=== PATIENT | male | born 1935 | race Caucasian/White ===

== ENCOUNTER 2021-02-07 02:28 | Inpatient (IN) | payer OTHER ==
[2021-02-07 04:41] LABS: BASO % 0.6 % (0-2.0); EOS % 3.3 % (0-4.5); HEMATOCRIT 43.1 % (35.4-49); MCH 31.8 pg (25.7-33.7); MCHC 32.3 g/dl (32.0-35.9); MEAN CELL VOLUME 98.2 fl (80-96); MEAN PLT VOLUME 8.7 fl (7.5-11.1); MONO % 9.2 % (3.8-10.2); NEUT % 79.9 % (42.8-82.8); PLATELET COUNT 210 K/MM3 (134-434); RDW 14.5 % (11.9-15.9); WHITE BLOOD COUNT 7.7 K/mm3 (4.0-10.0)
[2021-02-07 04:49] LABS: INR 1.06 (0.83-1.09); PROTHROMBIN TIME (PATIENT) 12.8 SEC (9.7-13.0)
[2021-02-07 05:03] LABS: CALCIUM 9.1 mg/dL (8.5-10.1)
[2021-02-07 05:04] LABS: ALBUMIN 3.2 g/dl (3.4-5.0); BLOOD UREA NITROGEN 61.2 mg/dL (7-18)
[2021-02-07 05:07] LABS: CREATININE 2.2 mg/dL (0.55-1.3)
[2021-02-07 05:09] LABS: BILIRUBIN,TOTAL 0.8 mg/dL (0.2-1); TOT PROT 6.4 g/dl (6.4-8.2)
[2021-02-07 05:12] LABS: EPI CELLS >36 /uL (0-25.1); HYALINE CASTS 6 /uL (0-3.1); PH,URINE 5.5 (5.0-8.0); URINE APPEARANCE CLOUDY; URINE BACTERIA 144 /uL (0-1359); URINE BILIRUBIN NEGATIVE (NEGATIVE); URINE COLOR YELLOW; URINE GLUCOSE (UA) NEGATIVE (NEGATIVE); URINE KETONE TRACE (NEGATIVE); URINE LEUK ESTERASE TRACE (NEGATIVE); URINE NITRITE NEGATIVE (NEGATIVE); URINE PROTEIN 4+ (NEGATIVE); URINE RBC 11 /uL (0-23.9); URINE WBC 94 /uL (0-25.8)
[2021-02-07 05:36] LABS: N-TERMINAL BNP 73265.7 pg/ml (5-450)
[2021-02-07] MEDS ORDERED: ASPIRIN 81 MG CHEWABLE TABLETS PO ONE (06:46)
[2021-02-07] MEDS ORDERED: ASPIRIN 81 MG CHEWABLE TABLETS ONE (06:55)
[2021-02-07] MEDS ORDERED: FUROSEMIDE 40 MG/4 ML INJECTABLE VIAL IVPUSH ONE (08:45)
[2021-02-07] MEDS ORDERED: DEXTROSE 5%-WATER - 1,000 ML IV SCH (08:45)
[2021-02-07] MEDS ORDERED: FUROSEMIDE 40 MG/4 ML INJECTABLE VIAL ONE (08:51)
[2021-02-07] MEDS: ENOXAPARIN NA (PORCINE) 30 MG/0.3 ML DISP.SYRIN SQ SCH (10:20)
[2021-02-07] MEDS: metoPROLOL SUCCINATE 25 MG TAB.SR.24H (FP) PO SCH (10:20)
[2021-02-07] MEDS: PANTOPRAZOLE SODIUM 40 MG VIAL IVPUSH SCH (10:20)
[2021-02-07] MEDS: ASPIRIN COATED 81 MG TABLET.EC PO SCH (12:00)
[2021-02-07] MEDS: FUROSEMIDE 100 MG/10 ML INJECTABLE VIAL IVPB SCH (12:00)
[2021-02-07 12:51] LABS: LACTIC ACID 2.2 mmol/L (0.4-2.0)
[2021-02-07] MEDS ORDERED: ENOXAPARIN NA (PORCINE) 30 MG/0.3 ML DISP.SYRIN SQ ONE (17:51)
[2021-02-07] MEDS ORDERED: PANTOPRAZOLE SODIUM 40 MG VIAL ONE (17:52)
[2021-02-07] MEDS ORDERED: metoPROLOL SUCCINATE 25 MG TAB.SR.24H (FP) ONE (17:53)
[2021-02-07] MEDS ORDERED: ATORVASTATIN CA 40 MG TABLET (FP) ONE (21:59)
[2021-02-07] MEDS: ATORVASTATIN CA 80 MG TABLET (FP) PO SCH (22:00)
[2021-02-07] MEDS ORDERED: ATORVASTATIN CA 20 MG TABLET (FP) PO SCH (22:00)
[2021-02-08 07:14] LABS: EOS % 8.3 % (0-4.5); HEMATOCRIT 41.2 % (35.4-49); HEMOGLOBIN 13.5 GM/dL (11.7-16.9); LYMPH % 11.2 % (8-40); MCHC 32.8 g/dl (32.0-35.9); MEAN CELL VOLUME 97.6 fl (80-96); MEAN PLT VOLUME 8.4 fl (7.5-11.1); MONO % 13.5 % (3.8-10.2); PLATELET COUNT 196 K/MM3 (134-434); RBC 4.22 M/mm3 (4.00-5.60); RDW 14.6 % (11.9-15.9); WHITE BLOOD COUNT 6.7 K/mm3 (4.0-10.0)
[2021-02-08 07:26] LABS: CALCIUM 8.4 mg/dL (8.5-10.1)
[2021-02-08 07:27] LABS: BLOOD UREA NITROGEN 52.9 mg/dL (7-18)
[2021-02-08 07:30] LABS: CREATININE 1.7 mg/dL (0.55-1.3)
[2021-02-08] MEDS: ASPIRIN COATED 81 MG TABLET.EC PO SCH (11:10)
[2021-02-08] MEDS: ENOXAPARIN NA (PORCINE) 30 MG/0.3 ML DISP.SYRIN SQ SCH (11:11)
[2021-02-08] MEDS: metoPROLOL SUCCINATE 25 MG TAB.SR.24H (FP) PO SCH (11:11)
[2021-02-08] MEDS: PANTOPRAZOLE SODIUM 40 MG VIAL IVPUSH SCH (11:31)
[2021-02-08] MEDS: FUROSEMIDE 100 MG/10 ML INJECTABLE VIAL IVPB SCH (11:32)
[2021-02-08] MEDS ORDERED: DEXTROSE 5%-WATER - 1,000 ML IV SCH (14:30)
[2021-02-08] MEDS: ATORVASTATIN CA 80 MG TABLET (FP) PO SCH (21:27)
[2021-02-09 07:49] LABS: BASO % 1.1 % (0-2.0); EOS % 8.1 % (0-4.5); HEMATOCRIT 39.5 % (35.4-49); HEMOGLOBIN 13.2 GM/dL (11.7-16.9); LYMPH % 11.6 % (8-40); MCH 32.3 pg (25.7-33.7); MCHC 33.4 g/dl (32.0-35.9); MEAN CELL VOLUME 96.7 fl (80-96); MEAN PLT VOLUME 8.2 fl (7.5-11.1); MONO % 12.8 % (3.8-10.2); NEUT % 66.4 % (42.8-82.8); PLATELET COUNT 214 K/MM3 (134-434); RBC 4.09 M/mm3 (4.00-5.60); RDW 14.4 % (11.9-15.9); WHITE BLOOD COUNT 6.4 K/mm3 (4.0-10.0)
[2021-02-09 07:53] LABS: CALCIUM 8.5 mg/dL (8.5-10.1)
[2021-02-09 07:54] LABS: BLOOD UREA NITROGEN 44.9 mg/dL (7-18)
[2021-02-09 07:57] LABS: CREATININE 1.6 mg/dL (0.55-1.3)
[2021-02-09] MEDS ORDERED: DEXTROSE 5%-WATER - 1,000 ML IV SCH (08:51)
[2021-02-09] MEDS: PANTOPRAZOLE SODIUM 40 MG VIAL IVPUSH SCH (10:22)
[2021-02-09] MEDS: metoPROLOL SUCCINATE 25 MG TAB.SR.24H (FP) PO SCH (10:22)
[2021-02-09] MEDS: ASPIRIN COATED 81 MG TABLET.EC PO SCH (10:22)
[2021-02-09] MEDS: ENOXAPARIN NA (PORCINE) 30 MG/0.3 ML DISP.SYRIN SQ SCH (10:22)
[2021-02-09] MEDS: KCL 10 MEQ IVPB 10 MEQ/100 ML INFUS.BAG IVPB SCH ×3 (12:20→13:16)
[2021-02-09] MEDS: FUROSEMIDE 100 MG/10 ML INJECTABLE VIAL IVPB SCH (12:21)
[2021-02-09] MEDS ORDERED: POTASSIUM CHLORIDE TABS 20 MEQ TABLET.ER (FP) PO ONE (14:00)
[2021-02-09 15:01] LABS: LACTIC ACID 2.4 mmol/L (0.4-2.0)
[2021-02-09] MEDS: ATORVASTATIN CA 80 MG TABLET (FP) PO SCH (21:49)
[2021-02-10 07:19] LABS: HEMOGLOBIN 14.8 GM/dL (11.7-16.9); MCH 32.3 pg (25.7-33.7); MCHC 32.9 g/dl (32.0-35.9); MEAN CELL VOLUME 98.1 fl (80-96); MEAN PLT VOLUME 8.6 fl (7.5-11.1); PLATELET COUNT 225 K/MM3 (134-434); RBC 4.59 M/mm3 (4.00-5.60); RDW 14.6 % (11.9-15.9); WHITE BLOOD COUNT 10.6 K/mm3 (4.0-10.0)
[2021-02-10] MEDS: ENOXAPARIN NA (PORCINE) 30 MG/0.3 ML DISP.SYRIN SQ SCH (10:06)
[2021-02-10] MEDS: ASPIRIN COATED 81 MG TABLET.EC PO SCH (10:06)
[2021-02-10] MEDS: POTASSIUM CHLORIDE TABS 20 MEQ TABLET.ER (FP) PO SCH (10:06)
[2021-02-10] MEDS: PANTOPRAZOLE SODIUM 40 MG VIAL IVPUSH SCH (10:06)
[2021-02-10] MEDS: FUROSEMIDE 100 MG/10 ML INJECTABLE VIAL IVPB SCH (10:06)
[2021-02-10] MEDS: metoPROLOL SUCCINATE 25 MG TAB.SR.24H (FP) PO SCH (10:07)
[2021-02-10 11:04] LABS: ANISOCYTOSIS 1+; MACROCYTOSIS 1+; OVALOCYTE 1+; PLATELET ESTIMATE NORMAL; TARGET CELLS 1+
[2021-02-10 11:38] LABS: CHLORIDE 104 mmol/L (98-107); SODIUM 139 mmol/L (136-145)
[2021-02-10 11:43] LABS: ANION GAP 7 MMOL/L (8-16); CALCIUM 8.6 mg/dL (8.5-10.1); CO2 28 mmol/L (21-32); GLUCOSE,RANDOM 112 mg/dL (74-106)
[2021-02-10 11:44] LABS: BLOOD UREA NITROGEN 38.8 mg/dL (7-18)
[2021-02-10 11:47] LABS: CREATININE 1.6 mg/dL (0.55-1.3)
[2021-02-10 15:24] VITALS: BMI 25.2
[2021-02-10] MEDS: ATORVASTATIN CA 80 MG TABLET (FP) PO SCH (21:01)
[2021-02-10 21:32] LABS: EPI CELLS 5 /uL (0-25.1); HYALINE CASTS 2 /uL (0-3.1); PH,URINE 5.5 (5.0-8.0); URINE APPEARANCE CLEAR; URINE BACTERIA 75 /uL (0-1359); URINE BILIRUBIN NEGATIVE (NEGATIVE); URINE COLOR YELLOW; URINE GLUCOSE (UA) NEGATIVE (NEGATIVE); URINE KETONE NEGATIVE (NEGATIVE); URINE LEUK ESTERASE NEGATIVE (NEGATIVE); URINE NITRITE NEGATIVE (NEGATIVE); URINE PROTEIN 3+ (NEGATIVE); URINE RBC 10 /uL (0-23.9); URINE UROBILINOGEN 0.2 mg/dL (0.2-1.0); URINE WBC 8 /uL (0-25.8)
[2021-02-11] MEDS ORDERED: AMINO ACIDS/PROTEIN HYDROLYS 30 ML LIQUID.PKT PO SCH (08:00)
[2021-02-11] MEDS ORDERED: PT OWN MED DRAWER 7, Y5N ONE (08:55)
[2021-02-11] MEDS: ENOXAPARIN NA (PORCINE) 30 MG/0.3 ML DISP.SYRIN SQ SCH (09:07)
[2021-02-11] MEDS: metoPROLOL SUCCINATE 25 MG TAB.SR.24H (FP) PO SCH (09:07)
[2021-02-11] MEDS: ASPIRIN COATED 81 MG TABLET.EC PO SCH (09:07)
[2021-02-11] MEDS: POTASSIUM CHLORIDE TABS 20 MEQ TABLET.ER (FP) PO SCH (09:08)
[2021-02-11] MEDS: FUROSEMIDE 100 MG/10 ML INJECTABLE VIAL IVPB SCH (09:08)
[2021-02-11] MEDS: PANTOPRAZOLE SODIUM 40 MG VIAL IVPUSH SCH (09:08)
[2021-02-11] MEDS ORDERED: MULTIVIT-MINERALS ORAL LIQUID PO SCH (10:00)
[2021-02-11 11:56] LABS: EOS % 4.7 % (0-4.5); HEMATOCRIT 43.6 % (35.4-49); HEMOGLOBIN 14.3 GM/dL (11.7-16.9); LYMPH % 7.5 % (8-40); MCH 31.9 pg (25.7-33.7); MCHC 32.8 g/dl (32.0-35.9); MEAN CELL VOLUME 97.3 fl (80-96); MEAN PLT VOLUME 8.2 fl (7.5-11.1); MONO % 10.5 % (3.8-10.2); NEUT % 76.3 % (42.8-82.8); PLATELET COUNT 260 K/MM3 (134-434); RBC 4.48 M/mm3 (4.00-5.60); RDW 14.6 % (11.9-15.9); WHITE BLOOD COUNT 6.8 K/mm3 (4.0-10.0)
[2021-02-11 12:19] LABS: CHLORIDE 102 mmol/L (98-107); SODIUM 136 mmol/L (136-145)
[2021-02-11 12:25] LABS: ANION GAP 9 MMOL/L (8-16); CALCIUM 8.6 mg/dL (8.5-10.1); CO2 25 mmol/L (21-32); GLUCOSE,RANDOM 137 mg/dL (74-106)
[2021-02-11 12:29] LABS: CREATININE 1.6 mg/dL (0.55-1.3)
[2021-02-11 20:34] VITALS: BP 143/69; PULSE 92; TEMP 98.2
== END 2021-02-11 21:26 | disposition short-term general hospital (02) | DRG 306 ==
LOC: JER 02:28 → JERBED 06:55 → J4W 20:18
PROVIDERS: ADMIT Internal Medicine; ATTEND Internal Medicine
DX: I35.0 Nonrheumatic aortic (valve) stenosis (principal); I50.33 Acute on chronic diastolic (congestive) heart failure; N17.9 Acute kidney failure, unspecified; I24.8 Other forms of acute ischemic heart disease; I11.0 Hypertensive heart disease with heart failure; I25.10 Atherosclerotic heart disease of native coronary artery without angina pectoris; N40.1 Benign prostatic hyperplasia with lower urinary tract symptoms; K21.9 Gastro-esophageal reflux disease without esophagitis; E78.5 Hyperlipidemia, unspecified; N40.0 Benign prostatic hyperplasia without lower urinary tract symptoms; N28.1 Cyst of kidney, acquired; Z95.5 Presence of coronary angioplasty implant and graft; E87.6 Hypokalemia; R55 Syncope and collapse
CPT/HCPCS: 36415; 70450-TC; 71045-TC-FY; 76775-TC; 76856-TC; 80048; 80053; 81003; 82550; 83605; 83735; 83880; 84484; 85025; 85379; 85610; 85730; 93005; 93010; 97116-GP; 97162-GP; 99285-25; C9803; U0003; U0005

== ENCOUNTER 2022-06-18 19:04 | Inpatient (IN) | payer OTHER ==
[2022-06-18 19:29] VITALS: BMI 30.4
[2022-06-18 21:44] LABS: EOS % 2.1 % (0-4.5); HEMATOCRIT 39.6 % (35.4-49); MCH 29.7 pg (25.7-33.7); MCHC 32.8 g/dl (32.0-35.9); MEAN CELL VOLUME 90.4 fl (80-96); MEAN PLT VOLUME 7.1 fl (7.5-11.1); MONO % 15.1 % (3.8-10.2); NEUT % 71.8 % (42.8-82.8); PLATELET COUNT 206 10^3/uL (134-434); RBC 4.38 M/mm3 (4.00-5.60); RDW 15.3 % (11.9-15.9); WHITE BLOOD COUNT 5.6 K/mm3 (4.0-10.0)
[2022-06-18 21:51] LABS: INR 1.08 (0.83-1.09); PROTHROMBIN TIME (PATIENT) 12.4 SEC (9.7-13.0)
[2022-06-18 21:55] LABS: ACTIVATED PTT 27.1 SECONDS (25.2-36.5)
[2022-06-18 22:07] LABS: ALBUMIN 3.1 g/dl (3.4-5.0); BLOOD UREA NITROGEN 68.6 mg/dL (7-18); CALCIUM 8.6 mg/dL (8.5-10.1); MAGNESIUM 1.9 mg/dL (1.8-2.4)
[2022-06-18 22:10] LABS: CREATININE 2.5 mg/dL (0.55-1.3); PHOSPHOROUS 2.4 mg/dL (2.5-4.9)
[2022-06-18 22:11] LABS: BILIRUBIN,TOTAL 0.5 mg/dL (0.2-1); TOT PROT 6.5 g/dl (6.4-8.2)
[2022-06-18 22:26] LABS: EPI CELLS 0 /uL (0-25.1); HYALINE CASTS 0 /uL (0-3.1); PH,URINE 5.5 (5.0-8.0); URINE APPEARANCE CLEAR; URINE BACTERIA 906 /uL (0-1359); URINE BILIRUBIN NEGATIVE (NEGATIVE); URINE COLOR YELLOW; URINE GLUCOSE (UA) NEGATIVE (NEGATIVE); URINE KETONE NEGATIVE (NEGATIVE); URINE LEUK ESTERASE 3+ (NEGATIVE); URINE NITRITE NEGATIVE (NEGATIVE); URINE PROTEIN 2+ (NEGATIVE); URINE RBC 6 /uL (0-23.9); URINE UROBILINOGEN 0.2 mg/dL (0.2-1.0); URINE WBC 502 /uL (0-25.8)
[2022-06-18] MEDS ORDERED: CEFTRIAXONE 1,000 MG in DEXTROSE 5%-WATER - 50 ML IVPB ONE (22:30)
[2022-06-18] MEDS ORDERED: CEFTRIAXONE 1 GM/50 ML BAG ONE (22:48)
[2022-06-18] MEDS ORDERED: ACETAMINOPHEN 325 MG TABLET (FP) PO PRN (22:48)
[2022-06-18] MEDS ORDERED: CEFTRIAXONE 1 GM in DEXTROSE 5%-WATER - 50 ML IVPB ONE (22:53)
[2022-06-18] MEDS: D5-1/2NS+10 MEQ KCL - 10 MEQ/1,000 ML INFUS.BAG IV SCH (23:57)
[2022-06-19] MEDS ORDERED: HEPARIN NA (PORCINE) 5,000 UNITS/ML 1ML VIAL ONE ×2 (06:10→14:30)
[2022-06-19] MEDS: HEPARIN NA (PORCINE) 5,000 UNITS/ML 1ML VIAL SQ SCH ×3 (06:21→14:40)
[2022-06-19 06:34] LABS: BASO % 1.2 % (0-2.0); EOS % 4.6 % (0-4.5); HEMATOCRIT 40.5 % (35.4-49); HEMOGLOBIN 13.2 GM/dL (11.7-16.9); LYMPH % 19.6 % (8-40); MCHC 32.5 g/dl (32.0-35.9); MEAN CELL VOLUME 89.5 fl (80-96); MEAN PLT VOLUME 6.9 fl (7.5-11.1); NEUT % 56.6 % (42.8-82.8); PLATELET COUNT 201 10^3/uL (134-434); RBC 4.53 M/mm3 (4.00-5.60); RDW 14.9 % (11.9-15.9); WHITE BLOOD COUNT 4.8 K/mm3 (4.0-10.0)
[2022-06-19 06:53] LABS: CALCIUM 8.6 mg/dL (8.5-10.1); MAGNESIUM 2.2 mg/dL (1.8-2.4)
[2022-06-19 06:54] LABS: BLOOD UREA NITROGEN 65.4 mg/dL (7-18)
[2022-06-19 06:57] LABS: CREATININE 2.2 mg/dL (0.55-1.3)
[2022-06-19] MEDS: AMINO ACIDS/PROTEIN HYDROLYS 30 ML LIQUID.PKT PO SCH (09:10)
[2022-06-19] MEDS ORDERED: PANTOPRAZOLE 40 MG TABLET PO ONE (09:17)
[2022-06-19] MEDS ORDERED: metoPROLOL SUCCINATE 25 MG TAB.SR.24H (FP) PO ONE (09:17)
[2022-06-19] MEDS: PANTOPRAZOLE 40 MG TABLET PO SCH (09:20)
[2022-06-19] MEDS: MULTIVITAMINS THER W-MINERALS COMBO TABLET (FP) PO SCH (09:20)
[2022-06-19] MEDS ORDERED: metoPROLOL SUCCINATE 25 MG TAB.SR.24H (FP) PO SCH (10:00)
[2022-06-19] MEDS ORDERED: LISINOPRIL 10 MG TABLET PO ONE (15:03)
[2022-06-19] MEDS ORDERED: CEFTRIAXONE 1 GM/50 ML BAG ONE (15:42)
[2022-06-19] MEDS ORDERED: LISINOPRIL 10 MG TABLET ONE (15:45)
[2022-06-19] MEDS: CEFTRIAXONE 1 GM in DEXTROSE 5%-WATER - 50 ML IVPB SCH (15:45)
[2022-06-19] MEDS ORDERED: ATORVASTATIN CA 80 MG TABLET (FP) PO SCH (22:00)
[2022-06-19] MEDS ORDERED: LISINOPRIL 5 MG TABLET PO SCH (22:00)
[2022-06-19] MEDS ORDERED: ATORVASTATIN CA 80 MG TABLET (FP) ONE (22:38)
[2022-06-19] MEDS ORDERED: APIXABAN 2.5 MG TABLET ONE (22:38)
[2022-06-19] MEDS: APIXABAN 2.5 MG TABLET PO SCH (22:47)
[2022-06-19] MEDS: D5-1/2NS+10 MEQ KCL - 10 MEQ/1,000 ML INFUS.BAG IV SCH (22:47)
[2022-06-20] MEDS: D5-1/2NS+10 MEQ KCL - 10 MEQ/1,000 ML INFUS.BAG IV SCH (02:47)
[2022-06-20] MEDS: AMINO ACIDS/PROTEIN HYDROLYS 30 ML LIQUID.PKT PO SCH ×2 (08:12→17:13)
[2022-06-20 08:36] LABS: BASO % 0.7 % (0-2.0); EOS % 2.1 % (0-4.5); HEMATOCRIT 38.6 % (35.4-49); HEMOGLOBIN 12.9 GM/dL (11.7-16.9); LYMPH % 8.6 % (8-40); MCHC 33.5 g/dl (32.0-35.9); MEAN CELL VOLUME 89.8 fl (80-96); MEAN PLT VOLUME 7.2 fl (7.5-11.1); MONO % 14.5 % (3.8-10.2); NEUT % 74.1 % (42.8-82.8); PLATELET COUNT 197 10^3/uL (134-434); RDW 15.1 % (11.9-15.9); WHITE BLOOD COUNT 6.8 K/mm3 (4.0-10.0)
[2022-06-20 08:53] LABS: BLOOD UREA NITROGEN 55.4 mg/dL (7-18); CALCIUM 8.6 mg/dL (8.5-10.1)
[2022-06-20 08:56] LABS: CHOLESTEROL 136 mg/dL (50-200); CREATININE 2.2 mg/dL (0.55-1.3); TRIGLYCERIDES 152 mg/dL (0-150)
[2022-06-20 08:57] LABS: LDL CHOLESTEROL (ONLY SJRH) 61 mg/dL (5-100)
[2022-06-20 08:59] LABS: HDL CHOLESTEROL 45 mg/dL (40-60)
[2022-06-20] MEDS: APIXABAN 2.5 MG TABLET PO SCH ×2 (09:31→22:10)
[2022-06-20] MEDS: CEFTRIAXONE 1 GM in DEXTROSE 5%-WATER - 50 ML IVPB SCH (09:31)
[2022-06-20] MEDS: MULTIVITAMINS THER W-MINERALS COMBO TABLET (FP) PO SCH (09:31)
[2022-06-20] MEDS: LISINOPRIL 10 MG TABLET PO SCH (09:32)
[2022-06-20] MEDS: PANTOPRAZOLE 40 MG TABLET PO SCH (09:32)
[2022-06-20] MEDS ORDERED: ATORVASTATIN CA 80 MG TABLET (FP) PO SCH (10:00)
[2022-06-20] MEDS ORDERED: ATORVASTATIN CA 20 MG TABLET (FP) ONE (21:54)
[2022-06-20] MEDS: ATORVASTATIN CA PO SCH (22:09)
[2022-06-21] MEDS: D5-1/2NS+10 MEQ KCL - 10 MEQ/1,000 ML INFUS.BAG IV SCH (00:03)
[2022-06-21 08:46] LABS: BASO % 0.6 % (0-2.0); EOS % 3.2 % (0-4.5); HEMATOCRIT 38.5 % (35.4-49); HEMOGLOBIN 12.5 GM/dL (11.7-16.9); LYMPH % 11.5 % (8-40); MCH 29.2 pg (25.7-33.7); MCHC 32.5 g/dl (32.0-35.9); MEAN CELL VOLUME 89.9 fl (80-96); MEAN PLT VOLUME 7.4 fl (7.5-11.1); MONO % 14.9 % (3.8-10.2); NEUT % 69.8 % (42.8-82.8); PLATELET COUNT 211 10^3/uL (134-434); RBC 4.28 M/mm3 (4.00-5.60); WHITE BLOOD COUNT 6.7 K/mm3 (4.0-10.0)
[2022-06-21] MEDS: AMINO ACIDS/PROTEIN HYDROLYS 30 ML LIQUID.PKT PO SCH ×2 (09:00→17:24)
[2022-06-21 09:17] LABS: BLOOD UREA NITROGEN 49.2 mg/dL (7-18)
[2022-06-21 09:18] LABS: CALCIUM 8.6 mg/dL (8.5-10.1)
[2022-06-21] MEDS: PANTOPRAZOLE 40 MG TABLET PO SCH (09:29)
[2022-06-21] MEDS: MULTIVITAMINS THER W-MINERALS COMBO TABLET (FP) PO SCH (09:29)
[2022-06-21] MEDS: APIXABAN 2.5 MG TABLET PO SCH ×2 (09:30→21:14)
[2022-06-21] MEDS: LISINOPRIL 10 MG TABLET PO SCH (09:30)
[2022-06-21] MEDS: CEFTRIAXONE 1 GM in DEXTROSE 5%-WATER - 50 ML IVPB SCH (09:32)
[2022-06-21] MEDS: ATORVASTATIN CA PO SCH (21:15)
[2022-06-22] MEDS: D5-1/2NS+10 MEQ KCL - 10 MEQ/1,000 ML INFUS.BAG IV SCH ×2 (03:16)
[2022-06-22 07:50] LABS: BASO % 0.8 % (0-2.0); EOS % 3.3 % (0-4.5); HEMATOCRIT 38.7 % (35.4-49); HEMOGLOBIN 12.6 GM/dL (11.7-16.9); LYMPH % 10.6 % (8-40); MCH 29.4 pg (25.7-33.7); MCHC 32.5 g/dl (32.0-35.9); MEAN CELL VOLUME 90.6 fl (80-96); MONO % 12.7 % (3.8-10.2); NEUT % 72.6 % (42.8-82.8); PLATELET COUNT 205 10^3/uL (134-434); RBC 4.27 M/mm3 (4.00-5.60); WHITE BLOOD COUNT 7.3 K/mm3 (4.0-10.0)
[2022-06-22 08:20] LABS: BLOOD UREA NITROGEN 45.9 mg/dL (7-18); CALCIUM 8.4 mg/dL (8.5-10.1)
[2022-06-22 08:23] LABS: CREATININE 1.8 mg/dL (0.55-1.3)
[2022-06-22] MEDS: AMINO ACIDS/PROTEIN HYDROLYS 30 ML LIQUID.PKT PO SCH ×4 (09:09→17:01)
[2022-06-22] MEDS: CEFTRIAXONE 1 GM in DEXTROSE 5%-WATER - 50 ML IVPB SCH (09:10)
[2022-06-22] MEDS: APIXABAN 2.5 MG TABLET PO SCH ×2 (09:10→21:39)
[2022-06-22] MEDS: LISINOPRIL 10 MG TABLET PO SCH (09:10)
[2022-06-22] MEDS: MULTIVITAMINS THER W-MINERALS COMBO TABLET (FP) PO SCH (09:10)
[2022-06-22] MEDS: PANTOPRAZOLE 40 MG TABLET PO SCH (09:10)
[2022-06-22 11:32] LABS: MAGNESIUM 2.4 mg/dL (1.8-2.4)
[2022-06-22 11:36] LABS: PHOSPHOROUS 3.5 mg/dL (2.5-4.9)
[2022-06-22] MEDS ORDERED: LISINOPRIL 5 MG TABLET PO ONE (18:30)
[2022-06-22] MEDS: ATORVASTATIN CA PO SCH (21:39)
[2022-06-22] MEDS: CEPHALEXIN MONOHYDRATE 500 MG CAPSULE (UD) PO SCH (21:40)
[2022-06-22] MEDS ORDERED: LISINOPRIL 5 MG TABLET PO SCH (22:00)
[2022-06-22 23:38] VITALS: RESP 18
[2022-06-23] MEDS ORDERED: LISINOPRIL 5 MG TABLET PO ONE (01:13)
[2022-06-23] MEDS: D5-1/2NS+10 MEQ KCL - 10 MEQ/1,000 ML INFUS.BAG IV SCH (02:21)
[2022-06-23] MEDS: AMINO ACIDS/PROTEIN HYDROLYS 30 ML LIQUID.PKT PO SCH (08:17)
[2022-06-23 08:25] LABS: BASO % 0.9 % (0-2.0); EOS % 3.9 % (0-4.5); HEMATOCRIT 35.9 % (35.4-49); HEMOGLOBIN 12.1 GM/dL (11.7-16.9); LYMPH % 9.9 % (8-40); MCH 30.2 pg (25.7-33.7); MCHC 33.6 g/dl (32.0-35.9); MEAN CELL VOLUME 89.8 fl (80-96); MEAN PLT VOLUME 7.1 fl (7.5-11.1); MONO % 13.1 % (3.8-10.2); NEUT % 72.2 % (42.8-82.8); PLATELET COUNT 221 10^3/uL (134-434); WHITE BLOOD COUNT 7.2 K/mm3 (4.0-10.0)
[2022-06-23 08:50] LABS: CALCIUM 8.3 mg/dL (8.5-10.1)
[2022-06-23 08:51] LABS: BLOOD UREA NITROGEN 46.7 mg/dL (7-18)
[2022-06-23 08:54] LABS: CREATININE 1.8 mg/dL (0.55-1.3)
[2022-06-23 09:05] VITALS: BP 158/83; PULSE 72; TEMP 98
[2022-06-23] MEDS: APIXABAN 2.5 MG TABLET PO SCH (09:42)
[2022-06-23] MEDS: PANTOPRAZOLE 40 MG TABLET PO SCH (09:42)
[2022-06-23] MEDS: CEPHALEXIN MONOHYDRATE 500 MG CAPSULE (UD) PO SCH (09:42)
[2022-06-23] MEDS: MULTIVITAMINS THER W-MINERALS COMBO TABLET (FP) PO SCH (09:42)
[2022-06-23] MEDS ORDERED: LISINOPRIL 10 MG TABLET PO SCH ×2 (10:00)
[2022-06-23] MEDS ORDERED: LISINOPRIL PO SCH (10:00)
== END 2022-06-23 13:26 | DRG 690 ==
LOC: JER 19:04 → JERBED 22:30 → J4S 06-20 00:54
PROVIDERS: ADMIT Internal Medicine; ATTEND Internal Medicine
DX: N39.0 Urinary tract infection, site not specified (principal); I13.0 Hypertensive heart and chronic kidney disease with heart failure and stage 1 through stage 4 chronic kidney disease, or unspecified chronic kidney disease; I48.21 Permanent atrial fibrillation; B96.20 Unspecified Escherichia coli [E. coli] as the cause of diseases classified elsewhere; F03.90 Unspecified dementia, unspecified severity, without behavioral disturbance, psychotic disturbance, mood disturbance, and anxiety; I50.9 Heart failure, unspecified; N18.9 Chronic kidney disease, unspecified; K22.70 Barrett's esophagus without dysplasia; E78.00 Pure hypercholesterolemia, unspecified; E83.39 Other disorders of phosphorus metabolism; I25.119 Atherosclerotic heart disease of native coronary artery with unspecified angina pectoris; K21.9 Gastro-esophageal reflux disease without esophagitis; E78.5 Hyperlipidemia, unspecified; E86.0 Dehydration; N40.0 Benign prostatic hyperplasia without lower urinary tract symptoms; Z95.5 Presence of coronary angioplasty implant and graft
CPT/HCPCS: 36415; 70450-TC; 71045-TC-FY; 72125-TC; 72170-TC-FY; 73630-TC-LT; 80048; 80053; 80061; 81003; 83735; 84100; 84443; 84484; 85025; 85610; 85730; 86850; 86900; 86901; 87040; 87086; 87186; 93005; 93010; 93306-TC; 97116-GP; 97161-GP; 99285-25; C9803-CS; J1644; U0003; U0005